=== PATIENT | female | born 2000 | race Caucasian/White ===

== ENCOUNTER 2018-12-06 00:40 | Emergency (ER) | payer OTHER ==
[2018-12-06 02:05] VITALS: TEMP 97.6; BMI 30.8
--- NOTE | 2018-12-06 02:14 | PDOC ---
History of Present Illness - General Chief Complaint: Pain Stated Complaint: RECTUM PAIN Time Seen by Provider: 12/06/18 02:06 History Source: Patient Exam Limitations: No Limitations - History of Present Illness Initial Comments: 18 yo obese F w a pmh of pre-diabetes presents to the ER with 4 days of abdominal pain associated with nausea and bloody diarrhea. She states it is painful for her to make a bowel movement. She has been eating spicy "tachyuma" chips for the past 5 days and believes her bloody bowel movements are from these chips. Her 12 year old sister has also been eating these chips and also has the bloody bowel problems. The patient also endorses RLQ abdominal pain. She denies having recent fevers, chills, or infections. The patient brought a picture of her bowel movements to the hospital on her phone and the picture shows that the patient has a streak of blood near her feces in the toilet. The toilet bowl fluid is not red in color. LMP: November 20 PCP: Kostas Abebe PSH: None reported Social Hx: Denies smoking, drinking, or other substance usage Allergies: NKA, NKDA Past History - Past Medical History Allergies/Adverse Reactions: Allergies Allergy/AdvReac Type Severity Reaction Status Date / Time No Known Allergies Allergy Verified 12/06/18 02:06 Home Medications: Ambulatory Orders NK [No Known Home Medication] 12/06/18 - Suicide/Smoking/Psychosocial Hx Smoking History: Never smoked Have you smoked in the past 12 months: No Information on smoking cessation initiated: No Hx Alcohol Use: Yes Drug/Substance Use Hx: No Review of Systems - Review of Systems Able to Perform ROS?: Yes Comments:: CONSTITUTIONAL: Absent: fever, no chills, no fatigue EYES: Absent: visual changes ENT: Absent: ear pain, no sore throat CARDIOVASCULAR: Absent: chest pain, no palpitations RESPIRATORY: Absent: cough, no SOB GI: Present: Abdominal pain, nausea, diarrhea Absent: no vomiting, no constipation GENITOURINARY: Absent: dysuria, no frequency, no hematuria MUSKULOSKELETAL: Absent: back pain, no arthralgia, no myalgia SKIN: Absent: rash NEURO: Absent: headache *Physical Exam - Vital Signs Last Vital Signs Temp Pulse Resp BP Pulse Ox 97.6 F 74 18 117/74 98 12/06/18 00:40 12/06/18 00:40 12/06/18 00:40 12/06/18 00:40 12/06/18 00:40 - Physical Exam Comments: GENERAL: Well-appearing, well-nourished. No apparent distress. HEENT: Normocephalic, atraumatic. PERRL, EOM intact. CARDIOVASCULAR: Normal S1, S2. Regular rate and rhythm. PULMONARY: No evidence of respiratory distress. Lungs clear to auscultation bilaterally. No wheezing, rales or rhonchi. ABDOMEN: There is epigastric TTP. There is also RLQ TTP. Negative gibson sign. negative rovsig, psoas, and obturater signs. Abdomen is soft and non-distended with normal bowel sounds. EXTREMITIES: Normal ROM in all four extremities. No gross deformities. SKIN: Warm, dry. No rash NEUROLOGICAL: No focal neurological deficits. Female Pelvic Exam: positive: normal external exam, cervical os closed, adnexal tenderness (right sided). negative: normal adnexa, CMT, discharge, lesions, Bartholin mass, vaginal bleeding Rectal Exam: positive: normal rectal tone, heme positive stool, hemorrhoids (No external. Possible internal), other (Extreme pain upon insertion of finger into rectum). negative: heme negative stool, normal exam, NL Prostate, melena, decreased tone ED Treatment Course - LABORATORY CBC & Chemistry Diagram: 12/06/18 02:38 12/06/18 02:38 Medical Decision Making - Medical Decision Making 18 yo obese F w a pmh of pre-diabetes presents to the ER with 4 days of abdominal pain associated with nausea and bloody diarrhea. She states it is painful for her to make a bowel movement. She has been eating spicy "tachyuma" chips for the past 5 days and believes her bloody bowel movements are from these chips. Her 12 year old sister has also been eating these chips and also has the bloody bowel problems. The patient also endorses RLQ abdominal pain. She denies having recent fevers, chills, or infections. The patient brought a picture of her bowel movements to the hospital on her phone and the picture shows that the patient has a streak of blood near her feces in the toilet. The toilet bowl fluid is not red in color. VS: WNL DDx IBNLT: Gastroenteritis, food poisoning, GERD, diverticular disease, colitis , hemorrhoids, anal fissure Plan: Labs, Urine, CTAP, analgesia, IV hydration, re-assess. CTAP shows diverticulosis without diverticulitis which can explain the rectal bleeding - Also shows 2.5 CM right ovarian cyst - Will do a pelvic exam and evaluate if a TVUS is necessary - Right adnexal pain on pelvic exam. Will get TVUS to r/o torsion. TVUS: No torsion. Will DC patient with GI and OB follow up. *DC/Admit/Observation/Transfer Diagnosis at time of Disposition: Abdominal pain, Rectal bleeding, Right ovarian cyst, Diverticulosis - Discharge Dispostion Disposition: HOME Condition at time of disposition: Fair Decision to Admit order: No - Referrals Referrals: Cary Solomon MD [Staff Physician] - Cristina Lee MD [Staff Physician] - - Patient Instructions Printed Discharge Instructions: Acute Abdominal Pain, DI for Ovarian Cyst, DI for Rectal Bleeding Additional Instructions: You came into the ER with abdominal pain. We did a cat scan which showed that you have diverticulosis which can be the source of your bleeding. It is very important that you schedule a follow up appointment with a service technician copier in the next 3 to 5 days to make sure you are being taken care of. We have attached the number of a service technician copier - Dr. Solomon - for you to follow up with. Please make sure to call up his office and schedule an appointment. Your cat scan also showed that you have an ovarian cyst. We did an ultrasound which showed your cyst is not twisting on itself. We have given you the number of a pot sander to follow up with regarding this cyst. Come back to the ER immediately if your pain worsens, you start vomiting, or have any other new or worsening concerns. Thank you for coming to the [facility] ER. We hope you feel better soon! Print Language: BURKINAN - Post Discharge Activity
[2018-12-06] MEDS ORDERED: SODIUM CHLORIDE 1,000 ML IV STA (02:15)
[2018-12-06] MEDS ORDERED: ACETAMINOPHEN 1000 MG/100 ML VIAL (NON FORMULARY) IVPB ONE (02:15)
--- NOTE | 2018-12-06 02:35 | PDOC ---
Attending Attestation - Resident Resident Name: Kwame Arredondo - ED Attending Attestation I have performed the following: I have examined & evaluated the patient, The case was reviewed & discussed with the resident, I agree w/resident's findings & plan, Exceptions are as noted - HPI HPI: 12/06/18 02:35 18-year-old female complaining of lower abdominal pain and bright red blood per rectum. Patient denies vomiting or fever. - Physicial Exam PE: 12/06/18 02:36 Agree with resident's exam - Medical Decision Making 12/06/18 02:36 18-year-old female with rectal bleeding and lower abdominal pain Plan for CT scan of the abdomen and pelvis, labs Plan for likely discharge home if stable with continued outpatient workup secondary to patient's young age Final disposition pending results
[2018-12-06] MEDS ORDERED: ACETAMINOPHEN INJECTION 100 ML IVPB ONE (02:38)
[2018-12-06] MEDS ORDERED: FAMOTIDINE 20 MG/50 ML IVPB 20 MG/50 ML MG IVPB ONE (02:57)
[2018-12-06 02:58] LABS: BASO % 0.6 % (0-2.0); EOS % 1.4 % (0-4.5); HEMATOCRIT 39.5 % (32.4-45.2); LYMPH % 31.9 % (8-40); MCH 28.3 pg (25.7-33.7); MCHC 32.9 g/dl (32.0-36.0); MEAN CELL VOLUME 85.9 fl (80-96); MEAN PLT VOLUME 8.2 fl (7.5-11.1); MONO % 6.4 % (3.8-10.2); NEUT % 59.7 % (42.8-82.8); PLATELET COUNT 294 K/MM3 (134-434); RDW 14.4 % (11.6-15.6); WHITE BLOOD COUNT 12.8 K/mm3 (4.0-10.0)
[2018-12-06 03:16] LABS: PH,URINE 5.5 (5.0-8.0); URINE APPEARANCE CLEAR; URINE BILIRUBIN NEGATIVE (NEGATIVE); URINE COLOR YELLOW; URINE GLUCOSE (UA) NEGATIVE (NEGATIVE); URINE KETONE NEGATIVE (NEGATIVE); URINE LEUK ESTERASE NEGATIVE (NEGATIVE); URINE NITRITE NEGATIVE (NEGATIVE); URINE PROTEIN NEGATIVE (NEGATIVE); URINE UROBILINOGEN 0.2 mg/dL (0.2-1.0)
[2018-12-06 03:20] LABS: HCG,QUALITATIVE URINE Negative
[2018-12-06 03:24] LABS: ALBUMIN 4.3 g/dl (3.4-5.0); ALK PHOS 81 U/L (45-117); ANION GAP 5 MMOL/L (8-16); BILIRUBIN,TOTAL 0.2 mg/dL (0.2-1); BLOOD UREA NITROGEN 19 mg/dL (7-18); CALCIUM 9.7 mg/dL (8.5-10.1); CHLORIDE 103 mmol/L (98-107); CO2 29 mmol/L (21-32); CREATININE 0.7 mg/dL (0.55-1.3); GLUCOSE,RANDOM 90 mg/dL (74-106); LIPASE 146 U/L (73-393); POTASSIUM 4.3 mmol/L (3.5-5.1); SGOT/AST 15 U/L (15-37); SGPT/ALT 24 U/L (13-61); SODIUM 137 mmol/L (136-145); TOT PROT 8.2 g/dl (6.4-8.2)
[2018-12-06] MEDS ORDERED: KETOROLAC TROMETHAMINE 30 MG/1 ML VIAL IVPUSH ONE (05:14)
[2018-12-06] MEDS ORDERED: KETOROLAC TROMETHAMINE 30 MG/1 ML VIAL ONE (05:16)
[2018-12-06 05:37] VITALS: BP 96/52; PULSE 67
== END 2018-12-06 06:47 | disposition home or self-care (01) ==
LOC: JER 00:40
PROC: 3E0337Z Introduction of Electrolytic and Water Balance Substance into Peripheral Vein, Percutaneous Approach (ICD-10-PCS; principal; 2018-12-06)
PROC: 3E033GC Introduction of Other Therapeutic Substance into Peripheral Vein, Percutaneous Approach (ICD-10-PCS; 2018-12-06)
PROC: 3E033NZ Introduction of Analgesics, Hypnotics, Sedatives into Peripheral Vein, Percutaneous Approach (ICD-10-PCS; 2018-12-06)
PROC: 3E0333Z Introduction of Anti-inflammatory into Peripheral Vein, Percutaneous Approach (ICD-10-PCS; 2018-12-06)
DX: N83.201 Unspecified ovarian cyst, right side (principal); K57.90 Diverticulosis of intestine, part unspecified, without perforation or abscess without bleeding
CPT/HCPCS: 36415; 74177-TC; 76830-TC; 80053; 81003; 82272; 83605; 83690; 84703; 85025; 96361; 96365; 96375; 99283-25; J0131; J7030

== ENCOUNTER 2021-11-07 19:43 | Emergency (ER) | payer OTHER ==
[2021-11-07 19:56] VITALS: BP 130/77; PULSE 80; TEMP 97.9; BMI 38.0
== END 2021-11-07 21:28 | disposition left against medical advice (07) ==
LOC: JER 19:43
DX: R10.9 Unspecified abdominal pain (principal)
CPT/HCPCS: 99281-25

== ENCOUNTER 2022-06-13 11:55 | Inpatient (IN) | payer OTHER ==
[2022-06-13] MEDS: ELECTROLYTE-148 SOLN 1,000 ML IV SCH (12:30)
[2022-06-13 13:56] VITALS: BMI 39.8
[2022-06-13] MEDS ORDERED: PROMETHAZINE HCL 25 MG/1 ML VIAL IVPUSH ONE (14:00)
[2022-06-13] MEDS ORDERED: DINOPROSTONE 10 MG VAGINAL SUPPOSITORY VG ONE (14:15)
[2022-06-13] MEDS ORDERED: BUTORPHANOL TARTRATE 1 MG/ML VIAL IVPB ONE (14:15)
[2022-06-13 14:27] LABS: BASO % 0.5 % (0-2.0); EOS % 1.5 % (0-4.5); HEMATOCRIT 31.2 % (32.4-45.2); HEMOGLOBIN 10.4 GM/dL (10.7-15.3); LYMPH % 20.5 % (8-40); MCH 25.7 pg (25.7-33.7); MCHC 33.5 g/dl (32.0-36.0); MEAN CELL VOLUME 76.6 fl (80-96); MEAN PLT VOLUME 8.5 fl (7.5-11.1); MONO % 5.7 % (3.8-10.2); NEUT % 71.8 % (42.8-82.8); PLATELET COUNT 246 10^3/uL (134-434); RBC 4.07 M/mm3 (3.60-5.2); RDW 16.7 % (11.6-15.6); WHITE BLOOD COUNT 10.6 K/mm3 (4.0-10.0)
[2022-06-13] MEDS ORDERED: SODIUM PHOSPHATE/NA BIPHOS 133 ML ENEMA RC ONE (14:30)
[2022-06-13 14:34] LABS: INR 0.97 (0.83-1.09); PROTHROMBIN TIME (PATIENT) 11.1 SEC (9.7-13.0)
[2022-06-13 14:37] LABS: ACTIVATED PTT 27.2 SECONDS (25.2-36.5)
[2022-06-13 15:01] LABS: CALCIUM 8.8 mg/dL (8.5-10.1)
[2022-06-13 15:07] LABS: BLOOD UREA NITROGEN 8.4 mg/dL (7-18); CREATININE 0.4 mg/dL (0.55-1.3)
[2022-06-14] MEDS ORDERED: PROMETHAZINE HCL 25 MG/1 ML VIAL ONE ×2 (01:51→08:17)
[2022-06-14] MEDS ORDERED: BUTORPHANOL TARTRATE 2 MG/ML VIAL ONE ×2 (01:51→08:17)
[2022-06-14] MEDS ORDERED: MISOPROSTOL 25 MCG TABLET (COMPOUNDED BY PHARMACY) NR ONE (04:38)
[2022-06-14] MEDS ORDERED: AMPICILLIN SODIUM 2 GM VIAL ONE (04:57)
[2022-06-14] MEDS ORDERED: OXYTOCIN 30 UNITS in 0.9% NS 30 UNIT/500 ML INFUS.BAG IVPB SCH (05:00)
[2022-06-14] MEDS ORDERED: AMPICILLIN - 2 GM in SODIUM CHLORIDE 100 ML IVPB ONE (05:00)
[2022-06-14] MEDS ORDERED: AMPICILLIN SODIUM 1 GM VIAL ONE ×3 (10:21→14:04)
[2022-06-14] MEDS: AMPICILLIN - 1 GM in SODIUM CHLORIDE 100 ML IVPB SCH ×3 (10:25→16:24)
[2022-06-14] MEDS ORDERED: FENTANYL/BUPIVACAINE/NS/PF - PCEA - 50 ML DISP.SYRIN EP ONE (11:30)
[2022-06-14] MEDS: ELECTROLYTE-148 SOLN 1,000 ML IV SCH (12:00)
[2022-06-14] MEDS ORDERED: NALOXONE HCL 0.4 MG/ML VIAL IVPUSH PRN (12:03)
[2022-06-14] MEDS ORDERED: FENTANYL/BUPIVACAINE/NS/PF - PCEA - 50 ML DISP.SYRIN EP SCH (12:15)
[2022-06-14] MEDS ORDERED: LIDO 2%/EPI 1:200000 PRESRVFRE (20 ML SDVIAL) ONE (14:32)
[2022-06-14] MEDS ORDERED: OXYTOCIN 20 UNITS in 0.9% NS 20 UNIT/1,000 ML INFUS.BAG IV ONE (15:09)
[2022-06-14] MEDS ORDERED: LIDOCAINE HCL 1% PRESERVATIVE FREE - 30ML VIAL ONE (15:09)
[2022-06-14 16:15] LABS: CORD BASE EXCESS -2.5 mmol/L (0-2); CORD HCO3 24.4 mmHg (20-29); CORD PCO2 48.7 mmHg (30-78); CORD pH 7.317 (7.14-7.44)
[2022-06-14 16:18] LABS: CORD HCO3 25.5 mmHg (20-29); CORD PCO2 67.8 mmHg (30-78); CORD pH 7.194 (7.14-7.44)
[2022-06-14] MEDS ORDERED: BENZOCAINE 20% 57 GM BOTTLE TP PRN (16:21)
[2022-06-14] MEDS ORDERED: oxyCODONE HCL 5 MG TABLET PO PRN (16:21)
[2022-06-14] MEDS ORDERED: BISACODYL 10 MG SUPP.RECT RC PRN (16:21)
[2022-06-14] MEDS ORDERED: WITCH HAZEL 50% (TUCKS) 40 PAD/JAR PAD TP PRN (16:21)
[2022-06-14] MEDS ORDERED: BENZOCAINE 28 GM HEMORRHOIDAL OINTMENT TP PRN (16:21)
[2022-06-14] MEDS ORDERED: ACETAMINOPHEN 325 MG TABLET (FP) PO PRN (16:21)
[2022-06-14] MEDS ORDERED: METHYLERGONOVINE MALEATE 0.2 MG/1 ML AMP IM PRN (16:21)
[2022-06-14] MEDS ORDERED: OXYTOCIN 20 UNITS in 0.9% NS 20 UNIT/1,000 ML INFUS.BAG IV SCH (16:30)
[2022-06-14] MEDS: FERROUS SO4 325 MG TABLET (FP) PO SCH (18:13)
[2022-06-15] MEDS: IBUPROFEN 600 MG TABLET (FP) PO PRN ×3 (05:03→17:10)
[2022-06-15 08:35] LABS: BASO % 0.3 % (0-2.0); EOS % 0.7 % (0-4.5); HEMATOCRIT 28.7 % (32.4-45.2); HEMOGLOBIN 9.8 GM/dL (10.7-15.3); LYMPH % 19.4 % (8-40); MCH 26.2 pg (25.7-33.7); MCHC 34.1 g/dl (32.0-36.0); MEAN CELL VOLUME 76.9 fl (80-96); MEAN PLT VOLUME 8.3 fl (7.5-11.1); MONO % 6.5 % (3.8-10.2); NEUT % 73.1 % (42.8-82.8); PLATELET COUNT 238 10^3/uL (134-434); RBC 3.74 M/mm3 (3.60-5.2); RDW 16.8 % (11.6-15.6); WHITE BLOOD COUNT 14.3 K/mm3 (4.0-10.0)
[2022-06-15] MEDS: FERROUS SO4 325 MG TABLET (FP) PO SCH ×2 (10:13→17:10)
[2022-06-15] MEDS: PRENATAL VITAMINS W/ FOLIC ACID TABLET (FP) PO SCH (10:13)
[2022-06-15 16:06] VITALS: RESP 18
[2022-06-15] MEDS ORDERED: SENNOSIDES/DOCUSATE COMBO (SENNA PLUS) TABLET (UD) PO PRN (22:00)
[2022-06-16] MEDS: IBUPROFEN 600 MG TABLET (FP) PO PRN (04:04)
[2022-06-16] MEDS: FERROUS SO4 325 MG TABLET (FP) PO SCH (08:21)
[2022-06-16] MEDS: PRENATAL VITAMINS W/ FOLIC ACID TABLET (FP) PO SCH (10:29)
[2022-06-16 11:51] VITALS: BP 121/74; PULSE 79; TEMP 98.9
== END 2022-06-16 14:05 | disposition home or self-care (01) | DRG 560 ==
LOC: JLDR 11:55 → J3W 06-14 17:59
PROVIDERS: ADMIT Obstetrics & Gynecology; ATTEND Obstetrics & Gynecology
PROC: 3E0P7VZ Introduction of Hormone into Female Reproductive, Via Natural or Artificial Opening (ICD-10-PCS; 2022-06-13)
PROC: 10E0XZZ Delivery of Products of Conception, External Approach (ICD-10-PCS; principal; 2022-06-14)
PROC: 0HQ9XZZ Repair Perineum Skin, External Approach (ICD-10-PCS; 2022-06-14)
PROC: 3E033VJ Introduction of Other Hormone into Peripheral Vein, Percutaneous Approach (ICD-10-PCS; 2022-06-14)
DX: O42.02 Full-term premature rupture of membranes, onset of labor within 24 hours of rupture (principal); O70.0 First degree perineal laceration during delivery; O99.214 Obesity complicating childbirth; E66.9 Obesity, unspecified; Z3A.39 39 weeks gestation of pregnancy; Z37.0 Single live birth
CPT/HCPCS: 36415; 36600; 59409; 71046-TC-FY; 80048; 82803; 85025; 85610; 85730; 86780; 86850; 86900; 86901; C9803-CS; U0003; U0005

== ENCOUNTER 2024-02-14 02:43 | Inpatient (IN) | payer OTHER ==
[2024-02-14] MEDS: ELECTROLYTE-148 SOLN 1,000 ML IV SCH ×2 (03:45→08:37)
[2024-02-14 04:04] VITALS: BMI 41.6
[2024-02-14] MEDS ORDERED: PROMETHAZINE HCL 25 MG/1 ML VIAL ONE (04:06)
[2024-02-14] MEDS ORDERED: BUTORPHANOL TARTRATE 2 MG/ML VIAL ONE (04:06)
[2024-02-14 04:12] LABS: INR 0.95 (0.83-1.09); PROTHROMBIN TIME (PATIENT) 10.9 SEC (9.7-13.0)
[2024-02-14 04:15] LABS: ACTIVATED PTT 27.8 SECONDS (25.2-36.5)
[2024-02-14 04:27] LABS: ALBUMIN 2.8 g/dl (3.4-5.0); BLOOD UREA NITROGEN 6.9 mg/dL (7-18); CALCIUM 8.9 mg/dL (8.5-10.1)
[2024-02-14 04:29] LABS: URIC ACID 3.4 mg/dL (2.6-7.2)
[2024-02-14 04:31] LABS: CREATININE 0.5 mg/dL (0.55-1.3)
[2024-02-14 04:32] LABS: BILIRUBIN,TOTAL 0.4 mg/dL (0.2-1); TOT PROT 6.5 g/dl (6.4-8.2)
[2024-02-14 04:57] LABS: BASO % 0.5 % (0-2.0); EOS % 1.7 % (0-4.5); HEMATOCRIT 33.2 % (32.4-45.2); LYMPH % 20.1 % (8-40); MCH 25.3 pg (25.7-33.7); MCHC 33.2 g/dl (32.0-36.0); MEAN CELL VOLUME 76.2 fl (80-96); MEAN PLT VOLUME 9.1 fl (7.5-11.1); MONO % 4.9 % (3.8-10.2); NEUT % 72.8 % (42.8-82.8); PLATELET COUNT 260 10^3/uL (134-434); RBC 4.36 M/mm3 (3.60-5.2); RDW 16.9 % (11.6-15.6); WHITE BLOOD COUNT 14.1 K/mm3 (4.0-10.0)
[2024-02-14] MEDS ORDERED: FENTANYL/BUPIVACAINE/NS/PF - PCEA - 50 ML DISP.SYRIN EP ONE ×4 (05:00→16:22)
[2024-02-14] MEDS ORDERED: BUPIVACAINE HCL/PF 0.25% (2.5MG/ML) 10 ML VIAL ONE (05:14)
[2024-02-14] MEDS ORDERED: FENTANYL CITRATE/PF 50 MCG/ML VIAL ONE (05:14)
[2024-02-14] MEDS: BUTORPHANOL TARTRATE 2 MG/ML VIAL IVPB SCH (05:30)
[2024-02-14] MEDS: FENTANYL/BUPIVACAINE/NS/PF - PCEA - 50 ML DISP.SYRIN EP SCH ×2 (05:30→10:19)
[2024-02-14] MEDS ORDERED: NALOXONE HCL 0.4 MG/ML VIAL IVPUSH PRN (05:41)
[2024-02-14] MEDS: PROMETHAZINE HCL 25 MG/1 ML VIAL IVPB ONE (06:06)
[2024-02-14] MEDS ORDERED: OXYTOCIN 20 UNITS in 0.9% NS 20 UNIT/1,000 ML INFUS.BAG IV ONE (19:36)
[2024-02-14] MEDS ORDERED: LIDOCAINE HCL 1% PRESERVATIVE FREE - 30ML VIAL ONE (19:36)
[2024-02-14] MEDS: OXYTOCIN 20 UNITS in 0.9% NS 20 UNIT/1,000 ML INFUS.BAG IV SCH (20:01)
[2024-02-14] MEDS ORDERED: oxyCODONE HCL 5 MG TABLET PO PRN (20:18)
[2024-02-14] MEDS ORDERED: METHYLERGONOVINE MALEATE 0.2 MG/1 ML AMP IM PRN (20:18)
[2024-02-14] MEDS ORDERED: ACETAMINOPHEN 325 MG TABLET (FP) PO PRN (20:18)
[2024-02-14] MEDS ORDERED: BISACODYL 10 MG SUPP.RECT RC PRN (20:18)
[2024-02-14] MEDS ORDERED: BENZOCAINE 28 GM HEMORRHOIDAL OINTMENT TP PRN (20:18)
[2024-02-14] MEDS ORDERED: WITCH HAZEL 50% (TUCKS) 40 PAD/JAR PAD TP PRN (20:18)
[2024-02-14] MEDS: AMPICILLIN - 2 GM in SODIUM CHLORIDE 100 ML IVPB SCH (22:04)
[2024-02-15] MEDS: BENZOCAINE 20% 57 GM BOTTLE TP PRN (01:08)
[2024-02-15] MEDS: IBUPROFEN 600 MG TABLET (FP) PO PRN (01:09)
[2024-02-15 08:34] LABS: BASO % 0.6 % (0-2.0); EOS % 0.9 % (0-4.5); HEMOGLOBIN 8.2 GM/dL (10.7-15.3); LYMPH % 18.5 % (8-40); MCH 25.2 pg (25.7-33.7); MCHC 32.7 g/dl (32.0-36.0); MEAN CELL VOLUME 76.9 fl (80-96); MEAN PLT VOLUME 8.6 fl (7.5-11.1); MONO % 4.4 % (3.8-10.2); NEUT % 75.6 % (42.8-82.8); PLATELET COUNT 232 10^3/uL (134-434); RBC 3.25 M/mm3 (3.60-5.2); RDW 17.1 % (11.6-15.6); WHITE BLOOD COUNT 14.6 K/mm3 (4.0-10.0)
[2024-02-15] MEDS ORDERED: FERROUS SO4 325 MG TABLET (FP) ONE (17:52)
[2024-02-15 18:32] VITALS: RESP 18
[2024-02-15] MEDS ORDERED: SENNOSIDES/DOCUSATE COMBO (SENNA PLUS) TABLET (UD) PO PRN (22:00)
[2024-02-15 22:24] VITALS: BP 129/61; PULSE 100; TEMP 97.9
== END 2024-02-16 19:17 | disposition home or self-care (01) | DRG 560 ==
LOC: JDEL 02:43 → JLDR 03:20 → J3W 22:08
PROVIDERS: ADMIT Obstetrics & Gynecology; ATTEND Obstetrics & Gynecology
PROC: 10E0XZZ Delivery of Products of Conception, External Approach (ICD-10-PCS; principal; 2024-02-14)
PROC: 0HQ9XZZ Repair Perineum Skin, External Approach (ICD-10-PCS; 2024-02-14)
DX: O48.0 Post-term pregnancy (principal); Z3A.41 41 weeks gestation of pregnancy; O70.0 First degree perineal laceration during delivery; Z37.0 Single live birth
CPT/HCPCS: 36415; 59025; 59409; 71046-TC-FY; 80053; 82977; 83010; 84550; 85025; 85045; 85610; 85730; 86780; 86850; 86900; 86901; 88307-TC